=== PATIENT | female | born 1985 ===

== ENCOUNTER 2016-10-29 11:41 | Emergency (ER) | payer SELFPAY ==
[2016-10-29] MEDS ORDERED: ONDANSETRON 4 MG/2 ML VIAL ONE (12:13)
[2016-10-29 12:17] LABS: COLOR RED; LEUKOCYTE ESTERASE,URINE NEGATIVE (NEGATIVE); NITRITE,URINE NEGATIVE (NEGATIVE)
[2016-10-29 12:29] LABS: BACTERIA 1+ /hpf (NONE SEEN); MUCUS TRACE /lpf (NONE-1+); RBC,URINE 50-182 /hpf (0-3); YEAST PRESENT /hpf (NONE SEEN)
[2016-10-29] MEDS ORDERED: ONDANSETRON 4 MG/2 ML VIAL IVP ONE (12:39)
[2016-10-29] MEDS ORDERED: NS 1,000 ML IV ONE (12:39)
[2016-10-29] MEDS ORDERED: HYDROmorphONE/DILAUDID 1 MG/ML SYR IVP ONE ×3 (12:40→12:43)
[2016-10-29] MEDS ORDERED: CEFTRIAXONE 1 GM/DEXTROSE/50 ML BAG IV ONE (13:27)
[2016-10-29] MEDS ORDERED: PROMETHAZINE HCL 25 MG/ML INJ ONE (13:38)
[2016-10-29] MEDS ORDERED: PROMETHAZINE HCL 25 MG/ML INJ IVP ONE (13:41)
--- NOTE | 2016-10-29 13:54 | EDPHY ---
H & P Time Seen by Provider: 10/29/16 12:07 Past Medical/Surgical History: HPI Left flank pain. 30-year-old female by private vehicle. She complains of left flank pain for the last 3-4 days. She reports that became significantly worse last night. She has a history of a right-sided nephrectomy for years ago. She states this is from kidney stones followed by infection that led to her right kidney being removed. She reports the pain is similar to the pain she has had in the past with kidney stones and particularly her right kidney. She describes it as in her left flank area and radiating to the left lower quadrant she states that is worse after she urinates. She reports that she has had some hematuria. No fever. ROS: Constitutional: No fever, no chills. No weakness. Eyes: No discharge. No changes in vision. ENT: No sore throat. No nasal congestion or rhinorrhea. Respiratory: No cough. No shortness of breath. Cardiac: No chest pain, no palpitations. Gastrointestinal: No abdominal pain, no vomiting, no diarrhea. Genitourinary: As above. Musculoskeletal: As above. No neck pain. No myalgias or arthralgias. Skin: No rashes. Neurological: No headache. No focal weakness or altered sensation. Past medical history: As above and includes hypothyroidism. She takes Synthroid for this. She currently does not have a drying oven tender or primary care physician was following her. Social history: She is here with her who is being seen in the emergency department for a diverticulitis flare. She denies smoking. No alcohol. Physical Exam: General Appearance: Alert, she appears uncomfortable. Obese habitus. This patient is responding to questions appropriately and in full sentences. This patient appears well-hydrated and well-nourished. Eyes: Pupils equal and round no pallor or injection. No lid edema, erythema or injection. Respiratory: There are no retractions, lungs are clear to auscultation with good air movement bilaterally. Cardiovascular: Regular rate and rhythm. No murmur. Gastrointestinal: Obese habitus. Abdomen is soft and nontender, no masses, bowel sounds normal. No focal tenderness at McBurney's point. No Lorenz sign. Neurological: Motor sensory function is grossly intact. Cranial nerves are normal. Gait is normal. Skin: Warm and dry, no rashes. Musculoskeletal: Left-sided CVA tenderness on palpation. Extremities are symmetrical. All joints range without pain or impingement. Psychiatric: No agitation. No depression. Database: EKG: Imaging: CT scan of abdomen and pelvis without contrast: Significant for a right-sided nephrectomy. She has a left ovarian cyst. Status post cholecystectomy. The left kidney and left ureter appear edematous. There is no evidence of a stone. Results were discussed with staff radiologist Dr. Alexey Gillis. Consider infection verses a passed ureteral stone. Procedures: Emergency department course: IV placed. She was placed on a monitor. She was initially given 1 mg of IV hydromorphone. She will be given additional doses at 0.5 mg up to 2 mg total. She received 4 mg of IV Zofran and was given a L of IV normal saline. 1:45 p.m., patient complains of continued pain and nausea. She was given an additional 0.5 mg of IV hydromorphone and 6.25 mg of IV Phenergan. 1:55 p.m., results of CT scan and diagnostic test discussed with her. Concern for pyelonephritis/infectious etiology given her history. She was started on IV Rocephin. 2:50 p.m., discussed admission with the patient. She initially said that she wanted to be transferred to [facility]. I explained this was emergently indicated that we could arrange to have her records transferred and she could go by private vehicle. She then told me that if she did that they would not admit her in any way. I expressed my concern regarding proper care of her left kidney. She is now in agreement to be admitted to our facility. 3:45 p.m., patient explains to me that she wants to leave our emergency department against medical advice and go to [facility]. She will be provided with her medical records from her visit today. I will also write a prescription for cefuroxime. She understands the risks of leaving our facility against medical advice. I explained my concern regarding her 1 left kidney. I explained that ultimately she may have just passed kidney stone or infection was also possible. In my professional opinion she understands these risks and decided to leave the emergency department regardless. Differential Diagnosis: The differential diagnosis on this patient includes but is not limited to history of right-sided nephrectomy, pyelonephritis, ureterolithiasis. This represents a partial list of diagnoses considered. These considerations are based on history, physical exam, past history, reassessment and diagnostic testing. Smoking Status: Current every day smoker Constitutional: Initial Vital Signs Temperature (C) 36.5 C 10/29/16 11:45 Heart Rate 89 10/29/16 11:45 Respiratory Rate 18 10/29/16 11:45 Blood Pressure 110/99 H 10/29/16 11:45 O2 Sat (%) 95 10/29/16 11:45 O2 Delivery Mode Room Air Allergies/Adverse Reactions: morphine Allergy (Severe, Verified 10/29/16 11:44) throat closes Tetanus Vaccines and Toxoid [Tetanus Vaccines & Toxoid] Allergy (Severe, Verified 10/29/16 11:44) throat closes haloperidol [From Haldol] Allergy (Verified 10/29/16 11:44) latex Allergy (Verified 10/29/16 11:44) nitrofurantoin [From Macrobid] Allergy (Verified 10/29/16 11:44) NSAIDS (Non-Steroidal Anti-Inflamma Allergy (Verified 10/29/16 11:44) promethazine [From Phenergan] Allergy (Verified 10/29/16 13:43) Home Medications: Medication Instructions Recorded Levothyroxine [Synthroid] 125 mcg PO DAILY06 11/26/15 Cefuroxime Axetil [Cefuroxime] 500 mg PO BID #20 tablet 10/29/16 Medical Decision Making - Data Points Laboratory Results: Laboratory Results 10/29/16 12:21 10/29/16 12:21 Medications Given: Discontinued Medications Hydromorphone HCl (Dilaudid) 0.5 mg IVP EDNOW ONE Stop: 10/29/16 12:41 Last Admin: 10/29/16 12:43 Dose: Not Given Hydromorphone HCl (Dilaudid) 0.5 mg IVP EDNOW ONE Stop: 10/29/16 12:44 Last Admin: 10/29/16 13:35 Dose: 0.5 mg Hydromorphone HCl (Dilaudid) 1 mg IVP EDNOW ONE Stop: 10/29/16 12:44 Last Admin: 10/29/16 12:53 Dose: 1 mg Sodium Chloride (Ns) 1,000 mls @ 0 mls/hr IV ONCE ONE PRN Reason: Wide Open Stop: 10/29/16 12:40 Last Admin: 10/29/16 12:42 Dose: 1,000 mls Ceftriaxone Sodium/Dextrose (Rocephin 1 Gm (Premix)) 50 mls @ 100 mls/hr IV EDNOW ONE PRN Reason: Protocol Stop: 10/29/16 14:11 Last Admin: 10/29/16 13:44 Dose: 50 mls Ondansetron HCl (Zofran) 4 mg IVP EDNOW ONE Stop: 10/29/16 12:40 Last Admin: 10/29/16 12:42 Dose: 4 mg Promethazine HCl (Phenergan) 6.25 mg IVP EDNOW ONE Stop: 10/29/16 13:42 Last Admin: 10/29/16 13:45 Dose: Not Given Departure - Departure Disposition: Against Medical Advice Clinical Impression: History of right nephrectomy, Left flank pain, Possible pyelonephritis, Possible ureterolithiasis Condition: Good Instructions: Kidney Stones (ED), Flank Pain (ED) Additional Instructions: Read and follow provided instructions. Go to the [facility] emergency department as discussed to be evaluated and for your left kidney pain. I have also provided you with an appropriate antibiotic for treatment of this potential kidney infection. Regardless I feel it is very important you be admitted to the hospital and cared for properly as an inpatient. Return to the emergency department for worsening pain, fever, vomiting or other serious concerns. Referrals: NONE *PRIMARY CARE P,. [Primary Care Provider] - As per Instructions Prescriptions: Cefuroxime Axetil [Cefuroxime] 500 mg PO BID #20 tablet
[2016-10-29 14:03] LABS: ANION GAP 13 mEq/L (8-16); CALCIUM 9.8 mg/dL (8.5-10.4); CARBON DIOXIDE 17 mEq/l (22-31); CHLORIDE 110 mEq/L (97-110); CREATININE 1.4 mg/dL (0.6-1.0); GLOMERULAR FILTRATION RATE 44; GLUCOSE 115 mg/dL (70-100); POTASSIUM 4.9 mEq/L (3.5-5.2); SODIUM 140 mEq/L (134-144); SPECIMEN HEMOLYSIS 111
[2016-10-29 16:08] VITALS: BP 112/78; PULSE 78; RESP 18; TEMP 98.2; O2SAT 96
== END 2016-10-29 16:08 | disposition left against medical advice (07) ==
DX: R10.9 Unspecified abdominal pain (principal); Z90.5 Acquired absence of kidney
CPT/HCPCS: 96374; J0696; J1170; J2405; J2550